=== PATIENT | female | born 2000 | race Two or more races ===

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

== ENCOUNTER 2021-02-12 17:15 | Emergency (ER) | payer SELFPAY ==
[~2021-02-12] VITALS: Ht 165.1 cm; Wt 63.5 kg
[2021-02-12 17:54] LABS: BASOPHILS % (AUTO) 0 % (0-1); EOSINOPHILS % (AUTO) 1 % (1-7); LYMPHOCYTES % (AUTO) 23 % (22-44); MEAN CORPUSCULAR HEMOGLOBIN 31.1 pg (27.0-34.8); MEAN PLATELET VOLUME 6.9 fL (7.4-10.4); MONOCYTES % (AUTO) 6 % (2-9); NEUTROPHILS % (AUTO) 70 % (42-75); PLATELET COUNT 290 x10^3/uL (130-400); RED BLOOD COUNT 4.22 x10^6/uL (3.82-5.3); RED CELL DISTRIBUTION WIDTH 13.3 % (9.6-15.2)
[2021-02-12 18:09] LABS: ALBUMIN 4.2 g/dL (3.4-5.0); ANION GAP 6 mmol/L (5-15); CHLORIDE 108 mmol/L (98-107)
[2021-02-12 18:14] LABS: ALANINE AMINOTRANSFERASE 23 U/L (12-78); ALKALINE PHOSPHATASE 76 U/L (45-117); BILIRUBIN,TOTAL 0.7 mg/dL (0.2-1.0); TOTAL PROTEIN 7.7 g/dL (6.4-8.2)
[2021-02-12 18:16] LABS: MICROSCOPIC AUTO
--- NOTE | 2021-02-12 20:17 | NUR ---
NOT IN LOBBY
--- NOTE | 2021-02-12 20:53 | NUR ---
NILX2
--- NOTE | 2021-02-12 21:47 | NUR ---
Lab redraw tylenol level. Pt on cont pulse ox, b/p, rails up, bed low. AIDET provided. Pt in NAD>
--- NOTE | 2021-02-12 21:53 | NUR ---
Lab called to draw tylenol level stat.
--- NOTE | 2021-02-12 21:56 | NUR ---
Lab here drawing repeat tylenol.
[2021-02-12 22:34] VITALS: BP 125/78
== END 2021-02-12 22:41 | disposition home or self-care (01) ==
LOC: ED 22:36
DX: T39.1X1A Poisoning by 4-Aminophenol derivatives, accidental (unintentional), initial encounter (principal); G43.909 Migraine, unspecified, not intractable, without status migrainosus; Y93.89 Activity, other specified; Y92.89 Other specified places as the place of occurrence of the external cause
CPT/HCPCS: 36415; 80053; 80299; 81001; 84703; 85025; 87086; 99283

== ENCOUNTER 2021-03-19 23:27 | Emergency (ER) | payer SELFPAY ==
[~2021-03-19] VITALS: Ht 162.6 cm; Wt 60.0 kg
[2021-03-19 23:31] VITALS: BP 145/102
== END 2021-03-20 00:59 | disposition home or self-care (01) ==
LOC: ED 23:45
DX: K08.89 Other specified disorders of teeth and supporting structures (principal)
CPT/HCPCS: 99283

== ENCOUNTER 2021-05-05 18:07 | Emergency (ER) | payer OTHER ==
[~2021-05-05] VITALS: Ht 154.9 cm; Wt 57.6 kg
[2021-05-05] MEDS ORDERED: LIDOCAINE-MPF 1%, 5ML INFIL ONE (19:30)
--- NOTE | 2021-05-05 20:55 | NUR ---
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
--- NOTE | 2021-05-05 21:24 | NUR ---
ASSUMED CARE OF PATIENT. PATIENT REPORTS WHEN SHE HAS ANXIETY SHE CUTS HERSELF. LAC NOTED TO LEFT WRIST. PT DENIES SI OR HI. PT HAS A FAMILY FRIEND AT BEDSIDE. BELONGINGS IN BAG. VS STABLE. WILL CONTINUE TO MONITOR.
[2021-05-05] MEDS ORDERED: LIDOCAINE-MPF 1%, 5ML ONE (22:07)
[2021-05-05 22:15] LABS: BASOPHILS % (AUTO) 0 % (0-1); EOSINOPHILS % (AUTO) 0 % (1-7); LYMPHOCYTES % (AUTO) 19 % (22-44); MEAN CORPUSCULAR HEMOGLOBIN 29.8 pg (27.0-34.8); MEAN CORPUSCULAR HGB CONC 33.4 g/dL (32.4-35.8); MEAN PLATELET VOLUME 7.7 fL (7.4-10.4); MONOCYTES % (AUTO) 4 % (2-9); NEUTROPHILS % (AUTO) 76 % (42-75); PLATELET COUNT 252 x10^3/uL (130-400); RED BLOOD COUNT 4.53 x10^6/uL (3.82-5.3); RED CELL DISTRIBUTION WIDTH 13.3 % (9.6-15.2)
[2021-05-05 22:22] LABS: ANION GAP 6 mmol/L (5-15); CALCIUM 9.1 mg/dL (8.5-10.1); CHLORIDE 106 mmol/L (98-107)
[2021-05-05 22:25] LABS: SALICYLATE LEVEL < 1.7 mg/dL (2.8-20.0)
[2021-05-05 22:33] LABS: ALANINE AMINOTRANSFERASE 18 U/L (12-78); ALKALINE PHOSPHATASE 73 U/L (45-117); BILIRUBIN,TOTAL 0.7 mg/dL (0.2-1.0); CREATININE 0.75 mg/dL (0.55-1.02); TOTAL PROTEIN 7.7 g/dL (6.4-8.2)
[2021-05-05] MEDS ORDERED: BACITRACIN ZINC OINT 500U/GM, 0.9 GM ONE (22:42)
--- NOTE | 2021-05-05 22:48 | NUR ---
BEDSIDE REPORT GIVEN TO HYACINTH OWEN. PT HAS TWO BELONGINGS BAGS LOCKED UP.
--- NOTE | 2021-05-05 22:55 | NUR ---
PT TRANFERRED FROM ROOM 28-39 SAFTEY PRECAUTIONS PUT INTO PLACE. SITTER OUTSIDE ROOM, UNCLE AT BEDSIDE. BELONGINGS SECURED IN LOCKERS, GARAGE DOORS SECURED. PT WOUND BANDAGED WITH BACITRACIN, ADAPTIC AND KRELEX. PT A&OX4, BREATHING EVEN AND UNLABORED, NADN. WCTM
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
[2021-05-05 23:37] LABS: AMPHETAMINE SCREEN, URINE Negative (Negative); BARBITURATE SCREEN, URINE Negative (Negative); BENZODIAZEPINE SCREEN, URINE Negative (Negative); CANNABINOID SCREEN, URINE Positive (Negative); COCAINE SCREEN, URINE Negative (Negative); METHADONE SCREEN, URINE Negative (Negative); OPIATE SCREEN, URINE Negative (Negative)
--- NOTE | 2021-05-06 00:26 | NUR ---
Patient is resting comfortably in bed. Bed in lowest, rails engaged, call light on lap. Vital Signs within normal limits. WCTM. SAFETY PRECAUTIONS IN PLACE . SITTER OUTSIDE ROOM, GARAGE DOORS SECURED. PERSONAL BELONGINGS SECURED IN LOCKERS. WCTM
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
--- NOTE | 2021-05-06 00:33 | NUR ---
JOEY : [phone], CARA:[phone] KEELY: [phone], KIA: [phone]
--- NOTE | 2021-05-06 01:13 | NUR ---
Patient is resting comfortably in bed. Bed in lowest, rails engaged, call light on lap. A&OX4.BREATHING EVEN AND UNLABORED. WCTM. SAME SAFETY PRECAUTIONS IN PLACE.
--- NOTE | 2021-05-06 02:15 | NUR ---
LATE ENTRY DUE TO PT CARE. PT BROUGHT PATIENT FOOD. FOOD WAS HONDURAN FRIES WITH MEAT AND TOPPINGS. PT WORRIED ABOUT MARIJUANA SHE SMOKED. PT WAS TOLD HE TOX RESULTS. PT CURRENTLY RESTING IN BED WITH AT BEDSIDE. NADN. GAMA
--- NOTE | 2021-05-06 04:32 | NUR ---
Patient is SLEEPING comfortably in bed. EYES CLOSED. BREATHING EVEN AND UNLABORED. LIGHTS DIMMED. Bed in lowest, rails engaged, call light on lap. WCTM. SAFETY PRECAUTIONS IN PLACE. SITTER OUTSIDE ROOM, GARAGE DOORS SECURED. PERSONAL BELONGINGS SECURED IN LOCKERS.
--- NOTE | 2021-05-06 06:01 | NUR ---
Patient is RESTING comfortably in bed. PT A&OX4. PT NOTIFIED SHE MIGHT MOVE TO ANOTHER ROOM AND SHE SAID SHE IS OKAY WITH THAT. BREATHING EVEN AND UNLABORED. LIGHTS DIMMED. Bed in lowest, rails engaged, call light on lap. WCTM. SAFETY PRECAUTIONS IN PLACE. SITTER OUTSIDE ROOM, GARAGE DOORS SECURED. PERSONAL BELONGINGS SECURED IN LOCKERS.
--- NOTE | 2021-05-06 07:07 | NUR ---
GAVE REPORT TO JOHNSON CLAROS. TRANSFER OF CARE
--- NOTE | 2021-05-06 07:12 | NUR ---
REPORT FROM LEXIE. PATIENT RESTING QUIETLY IN BED. BREAKFAST ORDERED.
[2021-05-06 07:16] VITALS: BP 118/78
--- NOTE | 2021-05-06 10:14 | NUR ---
PATIENT UP TO BATHROOM THEN BACK IN BED, WATCHING TV. CALM
--- NOTE | 2021-05-06 11:00 | NUR ---
REPORT TO RILYE CLAROS
[2021-05-06] MEDS ORDERED: BACITRACIN ZINC OINT 500U/GM, 0.9 GM ONE (11:12)
--- NOTE | 2021-05-06 12:00 | NUR ---
ABRAHAM RN: PACKET FAXED TO [facility]
--- NOTE | 2021-05-06 13:18 | NUR ---
PT PROVIDED WITH MEAL TRAY. DENIES FURTHER NEEDS AT THIS TIME
--- NOTE | 2021-05-06 14:08 | NUR ---
PATIENT IN BED, FAMILY AT BEDSIDE TALKING QUIETLY, SITTER OUTSIDE ROOM
[2021-05-06] MEDS ORDERED: QUET25TA5 PO (14:11)
--- NOTE | 2021-05-06 14:31 | NUR ---
DISCHARGE REVIEWED. SHOWS UNDERSTANDING. LEFT WITH FATHER.
== END 2021-05-06 14:44 | disposition home or self-care (01) ==
LOC: ED 21:49 → EDIP 22:47 → UNDOADMOB 22:47
DX: R45.851 Suicidal ideations (principal); S51.812A Laceration without foreign body of left forearm, initial encounter; F33.9 Major depressive disorder, recurrent, unspecified; F12.10 Cannabis abuse, uncomplicated; X83.8XXA Intentional self-harm by other specified means, initial encounter; Y93.89 Activity, other specified; Y92.89 Other specified places as the place of occurrence of the external cause; Y99.8 Other external cause status
CPT/HCPCS: 36415; 80053; 80299; 80307; 80320; 80329; 84443; 84703; 85025; 99283; G0480